=== PATIENT | male | born 1995 | race Caucasian/White ===

== ENCOUNTER 2020-04-28 03:34 | Emergency (ER) | payer OTHER ==
[~2020-04-28 03:34] MED LIST: LODINE400 MG PO
[2020-04-28] MEDS ORDERED: VIBRAMYCIN100 MG PO (03:54)
== END 2020-04-28 04:12 | disposition home or self-care (01) ==
LOC: FER 03:34
DX: L02.411 Cutaneous abscess of right axilla (principal)
CPT/HCPCS: 99283